=== PATIENT | female | born 1980 | race Caucasian/White ===

== ENCOUNTER 2016-11-27 20:16 | Emergency (ER) | payer OTHER ==
[~2016-11-27] VITALS: Ht 165.1 cm; Wt 73.9 kg
[2016-11-27 20:20] VITALS: BP 138/55
[2016-11-27] MEDS ORDERED: KETOROLAC TROMETHAMINE 0.5% OPHTH SOLUTION 3ML BOTTLE. OU ONE (21:30)
--- NOTE | 2016-11-27 21:49 | PHYS DOC ---
Past Medical History Past Medical History: No Pertinent History Past Surgical History: Other Additional Past Surgical Histo: BREAST AUGMENTATION, LAP SX. Alcohol Use: Occasionally Drug Use: None Adult General Chief Complaint Chief Complaint: EYE PROBLEMS HPI HPI Patient is a 36 year old female complains of bilateral eye irritation and redness for several days. She does wear contact lenses, the type that she puts then and wears continuously for 30 days. When this began, on Monday, 11/23, she removed her contact lenses and has not worn them since. This began as redness and irritation in her left eye with crusting discharge. She did not notice any change in visual acuity. She did not have eye pain or photophobia. She was seen here and prescribed tobramycin eyedrops which she has been using. 2 days later, she developed the same type of irritation and redness in her right eye, also with crusting discharge. She began to use the eyedrops in her right eye as well. Tonight the patient states that her eyelids are swollen. Her eyes are red, left worse than right. Her eyes feel irritated but not necessarily painful. No photophobia. She has not worn contact lenses since this began. She has been wearing her eyeglasses. Patient is an ED RN. Review of Systems Review of Systems Constitutional: Denies fever or chills [] Eyes: As in history of present illness HENT: Denies nasal congestion or sore throat [] Respiratory: Denies cough or shortness of breath [] Current Medications Current Medications Current Medications Medications (Trade) Dose Ordered Sig/Felton Start Time Stop Time Status Last Admin Dose Admin Ketorolac Tromethamine (Acular) 1 drop 1X ONCE 11/27/16 21:30 11/27/16 21:31 DC 11/27/16 21:13 1 DROP Allergies Allergies Allergies Coded Allergies Type Severity Reaction Last Updated Verified morphine Allergy Severe anaphalaxis "my throat closes up and i cant breathe anymore" 03/03/16 Yes Physical Exam Physical Exam Constitutional: Well developed, well nourished, no acute distress, non-toxic appearance. Alert, mentating normally. HENT: Normocephalic, atraumatic, bilateral external ears normal, nose normal. [ ] Eyes: Mild to moderate right conjunctival injection, moderate to severe left conjunctival injection, with an area superior to the cornea of subcutaneous conjunctival hemorrhage on the left. Corneas are clear. Mild puffy swelling of the eyelids, no stye or other eyelid pathology noted. No significant discharge at this time. Neck: Normal range of motion, no stridor. [] Skin: Warm, dry, no erythema, no rash. [] Extremities: No tenderness, no cyanosis, no clubbing, ROM intact, no edema. [] Neurologic: Alert and oriented X 3, normal motor function, normal sensory function, no focal deficits noted. [] Current Patient Data Vital Signs Vital Signs Date Time Temp Pulse Resp B/P Pulse Ox O2 Delivery O2 Flow Rate FiO2 11/27/16 20:20 97.5 85 16 99 Room Air 97.5 EKG EKG [] Radiology/Procedures Radiology/Procedures [] Course & Med Decision Making Course & Med Decision Making Pertinent Labs and Imaging studies reviewed. (See chart for details) 36-year-old female with bilateral conjunctivitis of unknown etiology. This is the fifth day. She has been using tobramycin eyedrops with no improvement. She does wear contact lenses but this began first in her left eye then 2 days later in her right, so I doubt it is related to contact lens wear. As we discussed, I feel it is likely to be another cause other than bacterial conjunctivitis. Choices include viral or allergic conjunctivitis. I don't believe switching to a different antibiotic would be helpful. We will try ketorolac eyedrops for redness, irritation, and swelling. She will continue to not wear her contact lenses until better. [] Dragon Disclaimer Dragon Disclaimer This electronic medical record was generated, in whole or in part, using a voice recognition dictation system. Departure Departure Impression: Primary Impression: Conjunctivitis Disposition: 01 HOME, SELF-CARE Condition: STABLE Referrals: JAMAAL DOMINIQUE (PCP) Patient Instructions: Allergic Conjunctivitis, [id number] Additional Instructions: Good handwashing. Do not wear contacts until your eyes are all cleared up. Ketorolac eyedrops 4 times a day for redness, swelling, itching. If not improving, see your eye doctor. SONNY GARCIA MD Nov 27, 2016 21:49
== END 2016-11-27 21:43 | disposition home or self-care (01) ==
LOC: ER 20:16
DX: H10.9 Unspecified conjunctivitis (principal); Z88.5 Allergy status to narcotic agent
CPT/HCPCS: 99282

== ENCOUNTER 2017-01-13 04:56 | Emergency (ER) | payer OTHER ==
[~2017-01-13] VITALS: Ht 165.1 cm; Wt 73.9 kg
[2017-01-13 05:16] VITALS: BP 123/73
--- NOTE | 2017-01-13 05:43 | PHYS DOC ---
Past Medical History Past Medical History: No Pertinent History Past Surgical History: Other Additional Past Surgical Histo: BREAST AUGMENTATION, LAP SX. Alcohol Use: Occasionally Drug Use: None Adult General Chief Complaint Chief Complaint: FOOT INJURY PAIN HPI HPI Patient is a 36 year old female who injured her left foot while at work. She reports she tripped over her feet. Patient's exam was consistent was tenderness to palpation to the medial aspect of her foot. Patient is tenderness palpation of the plantar aspect as well. There is some soft tissue swelling noted. Patient's x-ray of her left foot reveals no acute fracture or dislocation. Assessment and plan 36-year-old female with left foot sprain. Patient will be discharged home on ibuprofen. Review of Systems Review of Systems Allergies Allergies Allergies Coded Allergies Type Severity Reaction Last Updated Verified morphine Allergy Severe anaphalaxis "my throat closes up and i cant breathe anymore" 03/03/16 Yes Physical Exam Physical Exam Constitutional: Well developed, well nourished, no acute distress, non-toxic appearance. [] Extremities: Tenderness to palpation to the left foot her vascular intact Current Patient Data Vital Signs Vital Signs Date Time Temp Pulse Resp B/P (MAP) Pulse Ox O2 Delivery O2 Flow Rate FiO2 01/13/17 05:16 97.7 87 16 123/73 (90) 96 Room Air 97.7 EKG EKG [] Radiology/Procedures Radiology/Procedures [] Course & Med Decision Making Course & Med Decision Making Pertinent Labs and Imaging studies reviewed. (See chart for details) [] Dragon Disclaimer Dragon Disclaimer This electronic medical record was generated, in whole or in part, using a voice recognition dictation system. Departure Departure Impression: Primary Impression: Sprain of left foot Disposition: 01 HOME, SELF-CARE Condition: STABLE Referrals: JAMAAL DOMINIQUE (PCP) Patient Instructions: Foot Sprain BRADY COLLIER MD Jan 13, 2017 05:43
--- NOTE | 2017-01-13 07:09 | RAD ---
Left foot, 3 views, 01/13/2017: History: Injury, pain No fracture or dislocation is identified. The soft tissues are unremarkable. IMPRESSION: No acute bony abnormality is detected.
== END 2017-01-13 05:45 | disposition home or self-care (01) ==
LOC: ER 04:56
DX: S93.602A Unspecified sprain of left foot, initial encounter (principal); Z88.5 Allergy status to narcotic agent; W01.0XXA Fall on same level from slipping, tripping and stumbling without subsequent striking against object, initial encounter; Y93.89 Activity, other specified; Y92.89 Other specified places as the place of occurrence of the external cause; Y99.8 Other external cause status
CPT/HCPCS: 73630; 99284